=== PATIENT | female | born 1955 | race Caucasian/White ===

== ENCOUNTER 2017-05-07 15:26 | Emergency (ER) | payer OTHER ==
[~2017-05-07] VITALS: Ht 157.5 cm; Wt 90.7 kg
[2017-05-07] MEDS ORDERED: GLIPIZIDE10 MG (15:44)
[2017-05-07] MEDS ORDERED: FORTAMET1000 MG (15:44)
[2017-05-07] MEDS ORDERED: LOSARTAN POTASS50 MG (15:45)
[2017-05-07] MEDS ORDERED: SIMVASTATIN40 MG (15:45)
== END 2017-05-07 17:53 | disposition home or self-care (01) ==
LOC: ER 15:26
DX: I10 Essential (primary) hypertension (principal)